=== PATIENT | female | born 1990 | race Two or more races ===

== ENCOUNTER 2018-08-16 14:33 | Emergency (ER) | payer OTHER, SELFPAY ==
[~2018-08-16] VITALS: Ht 165.1 cm; Wt 79.6 kg
[2018-08-16 15:04] LABS: BASOPHILS # (AUTO) 0.04 x10^3/uL (0-0.1); BASOPHILS % (AUTO) 0 % (0-1); EOSINOPHILS # (AUTO) 0.17 x10^3/uL (0-0.4); EOSINOPHILS % (AUTO) 2 % (1-7); LYMPHOCYTES # (AUTO) 2.19 x10^3/uL (1-3.4); LYMPHOCYTES % (AUTO) 26 % (22-44); MD NO; MEAN CORPUSCULAR HEMOGLOBIN 29.1 pg (27.0-34.8); MEAN CORPUSCULAR HGB CONC 34.4 g/dL (32.4-35.8); MEAN CORPUSCULAR VOLUME 84.6 fL (80-100); MEAN PLATELET VOLUME 7.3 fL (7.4-10.4); MONOCYTES # (AUTO) 0.45 x10^3/uL (0.2-0.8); MONOCYTES % (AUTO) 5 % (2-9); NEUTROPHILS # (AUTO) 5.62 x10^3/uL (1.8-6.8); NEUTROPHILS % (AUTO) 66 % (42-75); PLATELET COUNT 337 x10^3/uL (130-400); RED BLOOD COUNT 4.84 x10^6/uL (3.82-5.3); RED CELL DISTRIBUTION WIDTH 13.7 % (9.6-15.2)
[2018-08-16 15:12] LABS: ANION GAP 7 mmol/L (5-15); CALCIUM 8.4 mg/dL (8.5-10.1); CHLORIDE 107 mmol/L (98-107)
[2018-08-16 15:17] LABS: ALANINE AMINOTRANSFERASE 54 U/L (12-78); ALKALINE PHOSPHATASE 77 U/L (45-117); BILIRUBIN,TOTAL 0.2 mg/dL (0.2-1.0); CREATININE 0.57 mg/dL (0.55-1.02)
[2018-08-16 15:56] LABS: CULTURE INDICATED? YES; MICROSCOPIC INDICATED
[2018-08-16 17:06] VITALS: BP 102/64
== END 2018-08-16 17:08 | disposition home or self-care (01) ==
LOC: ED 16:50
DX: N30.00 Acute cystitis without hematuria (principal); K59.00 Constipation, unspecified; N83.202 Unspecified ovarian cyst, left side
CPT/HCPCS: 36415; 74021; 76830; 80053; 81001; 84703; 85025; 87086; 99284